=== PATIENT | male | born 1945 ===

== ENCOUNTER 2022-05-19 09:00 | Inpatient (IN) | payer OTHER ==
[~2022-05-19] VITALS: Ht 170.2 cm; Wt 85.3 kg
[2022-05-19] MEDS ORDERED: PLAVIX75 MG PO (11:09)
[2022-05-19] MEDS ORDERED: LYRICA150 MG PO (11:09)
[2022-05-19] MEDS ORDERED: NORVASC5 MG PO (11:10)
[2022-05-19] MEDS ORDERED: COZAAR100 MG PO (11:10)
[2022-05-19] MEDS ORDERED: HYDRALAZINE HCL50 MG PO (11:10)
[2022-05-19] MEDS ORDERED: PROTONIX40 MG PO (11:10)
[2022-05-19] MEDS ORDERED: DOLOGESIC 500-1 EACH PO (11:11)
[2022-05-19] MEDS ORDERED: LIPITOR80 MG PO (11:11)
[2022-05-19] MEDS ORDERED: TAMS0.4C PO (11:11)
[2022-05-19] MEDS ORDERED: PROSCAR5 MG PO (11:11)
[2022-05-25] MEDS ORDERED: OXYBUTYNIN CHLO10 MG (08:14)
[2022-05-25] MEDS ORDERED: REFRESH TEARS15 ML (08:15)
[2022-05-25] MEDS ORDERED: NASAL SPRAY30 M1 (08:15)
[2022-05-25] MEDS ORDERED: PAIN RELIEF EX500 MG (08:15)
[2022-05-25] MEDS ORDERED: CENTRUM SILVER1 EAC4 (08:15)
[2022-05-25] MEDS ORDERED: BUSPIRONE HCL10 MG (08:15)
[2022-05-25] MEDS ORDERED: CILOSTAZOL50 MG (08:15)
[2022-05-25] MEDS ORDERED: DULOXETINE HCL60 MG (08:16)
== END 2022-05-26 18:04 | disposition home or self-care (01) | DRG 470 ==
LOC: SURH 05-24 07:00 → O/R 05-24 09:15 → SURG 05-24 17:17
PROVIDERS: ADMIT Orthopaedic Surgery; ATTEND Orthopaedic Surgery
PROC: 0SRC0J9 Replacement of Right Knee Joint with Synthetic Substitute, Cemented, Open Approach (ICD-10-PCS; principal; 2022-05-24 07:00)
DX: M17.11 Unilateral primary osteoarthritis, right knee (principal); D62 Acute posthemorrhagic anemia; M85.661 Other cyst of bone, right lower leg; Z20.822 Contact with and (suspected) exposure to COVID-19; I10 Essential (primary) hypertension